=== PATIENT | male | born 1950 | race African-American/Black ===

== ENCOUNTER 2018-06-17 06:30 | Inpatient (IN) | payer MEDICARE, BC ==
[2018-06-17] VITALS (43 sets, daily range): BP systolic 87–198; BP diastolic 17–82
[~2018-06-17] VITALS: Ht 180.3 cm; Wt 104.3 kg
[~2018-06-17 06:30] MED LIST: AMLO10TA80 PO; ATOR20TA65 PO; LOSA100T14 PO
[2018-06-17] MEDS ORDERED: NORMAL SALINE 0.9% 10 ML SYR ONE (08:43)
[2018-06-17] MEDS ORDERED: THROMBIN (BOVINE) 5000 UNITS/VIAL TOP ONE (08:43)
[2018-06-17] MEDS ORDERED: LIDOCAINE HCL/EPINEPHRINE 1%-EPI 1:100,000 20 ML VIAL ONE (08:44)
[2018-06-17] MEDS ORDERED: BACITRACIN 50,000 UNITS/VIAL ONE (08:44)
[2018-06-17] MEDS ORDERED: SODIUM CHLORIDE 0.9% 1,000 ML IV SCH (09:00)
[2018-06-17] MEDS ORDERED: HYDR-4001 PO (09:10)
[2018-06-17] MEDS ORDERED: HYDR12.529 PO (09:10)
[2018-06-17] MEDS ORDERED: DOCU-138 PO (09:11)
[2018-06-17] MEDS ORDERED: ROCURONIUM BROMIDE 10MG/ML VIAL 5ML IV ONE (10:05)
[2018-06-17] MEDS ORDERED: FENTANYL CITRATE/PF 50MCG/ML 2ML VIAL ONE ×2 (10:05→12:13)
[2018-06-17] MEDS ORDERED: NEOSTIGMINE METHYLSULFATE 1MG/ML 10 ML VIAL ONE (10:05)
[2018-06-17] MEDS ORDERED: PROPOFOL 200MG/20ML VIAL IV ONE ×2 (10:06→11:56)
[2018-06-17] MEDS ORDERED: MIDAZOLAM HCL 2 MG/2 ML VIAL ONE (10:06)
[2018-06-17] MEDS ORDERED: GLYCOPYRROLATE 0.2 MG/ML 2ML VIAL ONE (10:06)
[2018-06-17] MEDS ORDERED: OPIUM/BELLADONNA ALKALOIDS 60/16.2MG SUPP PR NR (10:15)
[2018-06-17] MEDS ORDERED: OPIUM/BELLADONNA ALKALOIDS 30/16.2MG SUPP PR NR (10:15)
[2018-06-17] MEDS ORDERED: SUCCINYLCHOLINE CHLORIDE 200MG/10ML IV ONE (11:38)
[2018-06-17] MEDS ORDERED: KETOROLAC 30MG/ML VIAL ONE (11:48)
[2018-06-17] MEDS ORDERED: HYDROCODONE/APAP 7.5/325MG 1 TAB TABLET PO PRN (13:15)
[2018-06-17] MEDS ORDERED: MORPHINE SULFATE 4 MG/ML CPJ (NOT FOR IM USE) IV PRN (13:15)
[2018-06-17] MEDS ORDERED: ONDANSETRON HCL 4MG/2ML INJ IV PRN (13:15)
[2018-06-17] MEDS ORDERED: PHENYLEPHRINE HCL 10 MG/ML 1ML (IV VIAL) IV ONE (13:17)
[2018-06-17] MEDS ORDERED: HYDROMORPHONE PCA 10MG/50ML IV PRN (14:00)
[2018-06-17] MEDS ORDERED: DIPHENHYDRAMINE INJ IV PRN (14:00)
[2018-06-17] MEDS ORDERED: CEFAZOLIN SODIUM 1000MG/VIAL IV SCH (14:00)
[2018-06-17] MEDS ORDERED: NALOXONE INJ IV PRN (14:00)
[2018-06-17] MEDS ORDERED: ONDANSETRON INJ IV PRN (14:00)
[2018-06-17] MEDS: DEXT 5%/LACTATED RINGERS 1,000 ML IV SCH ×2 (14:12→21:18)
[2018-06-17] MEDS: CEFAZOLIN 1000MG PREMIX 50 ML IV SCH ×2 (14:37→21:18)
[2018-06-17] MEDS: NICARDIPINE 100 MG in SODIUM CHLORIDE 0.9% 60 ML IV PRN (16:00)
[2018-06-18] VITALS (66 sets, daily range): BP systolic 67–175; BP diastolic 36–92
[2018-06-18] MEDS: DEXT 5%/LACTATED RINGERS 1,000 ML IV SCH (03:20)
[2018-06-18 05:59] LABS: HEMATOCRIT. 29.1 % (42.0-52.0); HEMOGLOBIN. 9.7 g/dL (14.0-18.0); MEAN CORPUSCULAR VOLUME 92.4 fL (80.0-94.0); MEAN PLATELET VOLUME 7.5 fl (7.4-10.4); PLATELET 330 x1000/uL (130-400); RED BLOOD CELL COUNT 3.14 mill/uL (4.7-6.1); RED CELL DISTRIBUTION WIDTH 13.7 % (11.6-14.6)
[2018-06-18 06:00] LABS: CHLORIDE 105 mEq/L (98-107)
[2018-06-18] MEDS: CEFAZOLIN 1000MG PREMIX 50 ML IV SCH (06:11)
[2018-06-18] MEDS: NICARDIPINE 100 MG in SODIUM CHLORIDE 0.9% 60 ML IV PRN (06:14)
[2018-06-18] MEDS ORDERED: PANTOPRAZOLE SODIUM 40 MG/VIAL IV SCH (09:00)
[2018-06-18] MEDS: HYDROCHLOROTHIAZIDE 25MG TABLET PO SCH (09:54)
[2018-06-18] MEDS: AMLODIPINE 10MG TABLET PO SCH (09:54)
[2018-06-18] MEDS: DOCUSATE SODIUM 250MG CAPSULE PO SCH (09:54)
[2018-06-18 12:57] LABS: PLATELET ESTIMATE NORMAL
[2018-06-18] MEDS: HYDROCODONE/ACETAMINOPHEN 10/325MG TABLET PO PRN (13:20)
[2018-06-18] MEDS: HYDROCODONE/APAP 7.5/325MG 1 TAB TABLET PO PRN (19:16)
[2018-06-18] MEDS ORDERED: CLONIDINE 0.1MG TABLET PO PRN (21:30)
[2018-06-19] VITALS (28 sets, daily range): BP systolic 113–159; BP diastolic 54–92
[2018-06-19] MEDS: HYDROCODONE/APAP 7.5/325MG 1 TAB TABLET PO PRN ×2 (05:43→15:03)
[2018-06-19 05:56] LABS: BASOPHILS % 0.3 % (0.0-2.0); EOSINOPHILS % 0.3 % (0.0-5.0); HEMATOCRIT. 24.8 % (42.0-52.0); HEMOGLOBIN. 8.4 g/dL (14.0-18.0); MEAN CORPUSCULAR HEMOGLOBIN 31.6 pg (28.0-32.0); MEAN PLATELET VOLUME 7.5 fl (7.4-10.4); MONOCYTES % 8.8 % (2.0-8.0); NEUTROPHILS % 77.6 % (40.0-76.0); PLATELET 261 x1000/uL (130-400); RED BLOOD CELL COUNT 2.67 mill/uL (4.7-6.1); RED CELL DISTRIBUTION WIDTH 13.6 % (11.6-14.6)
[2018-06-19 06:15] LABS: CHLORIDE 103 mEq/L (98-107)
[2018-06-19] MEDS: HYDROCHLOROTHIAZIDE 25MG TABLET PO SCH (08:32)
[2018-06-19] MEDS: DOCUSATE SODIUM 250MG CAPSULE PO SCH (08:32)
[2018-06-19] MEDS: AMLODIPINE 10MG TABLET PO SCH (08:32)
[2018-06-19 09:10] LABS: BG CARBOXYHEMOGLOBIN 0.7 % (0.5-1.5); BG DEOXYHEMOGLOBIN 4.4 % (0.0-5.0); BG FRACTION INSPIRED OXYGEN 21; BG HCO3 ACT 26.4 mmol/L (22.0-26.0); BG METHEMOGLOBIN 0.1 % (0.0-1.5); BG OXYGEN SATURATION 95.6 % (92.0-98.5); BG OXYHEMOGLOBIN 94.8 % (94.0-97.0); BG PCO2 40.4 mmHg (35.0-45.0); BG PH 7.433 (7.350-7.450); BG PO2 82.3 mmHg (75.0-100.0); BG SAMPLE SITE RIGHT RADIAL; BG TOTAL HEMOGLOBIN 10.6 g/dL (12.0-18.0); BG VENT MODE ROOM AIR
[2018-06-19] MEDS ORDERED: POTASSIUM CHLORIDE 20MEQ TABLET SR PO NR (09:45)
[2018-06-19] MEDS ORDERED: DEXTROSE 50% WATER 50ML SYRINGE IV PRN (14:00)
[2018-06-19] MEDS: BLOOD SUGAR DIAGNOSTIC STRIP TEST SCH ×2 (17:39→21:00)
[2018-06-19] MEDS: INSULIN LISPRO 100 UNITS/ML SUBCUT SCH ×2 (17:59→21:19)
[2018-06-19] MEDS: HYDROCODONE/ACETAMINOPHEN 10/325MG TABLET PO PRN (21:21)
[2018-06-20] VITALS: BP 139/76
[2018-06-20 04:00] VITALS: BP 131/71
[2018-06-20] MEDS: INSULIN LISPRO 100 UNITS/ML SUBCUT SCH ×4 (07:36→21:49)
[2018-06-20] MEDS: BLOOD SUGAR DIAGNOSTIC STRIP TEST SCH ×4 (07:36→21:00)
[2018-06-20 08:00] VITALS: BP 138/69
[2018-06-20] MEDS: HYDROCHLOROTHIAZIDE 25MG TABLET PO SCH (08:20)
[2018-06-20] MEDS: AMLODIPINE 10MG TABLET PO SCH (08:20)
[2018-06-20] MEDS: DOCUSATE SODIUM 250MG CAPSULE PO SCH (08:21)
[2018-06-20] MEDS: HYDROCODONE/ACETAMINOPHEN 10/325MG TABLET PO PRN ×2 (08:21→19:40)
[2018-06-20 12:00] VITALS: BP 133/70
[2018-06-20 16:00] VITALS: BP 130/64
[2018-06-20 20:00] VITALS: BP 132/66
[2018-06-21 00:14] VITALS: BP 106/69
[2018-06-21] MEDS: HYDROCODONE/ACETAMINOPHEN 10/325MG TABLET PO PRN ×2 (02:59→11:16)
[2018-06-21 04:00] VITALS: BP 138/72
[2018-06-21 06:09] LABS: BASOPHILS % 0.7 % (0.0-2.0); EOSINOPHILS % 1.2 % (0.0-5.0); HEMATOCRIT. 26.8 % (42.0-52.0); HEMOGLOBIN. 9.1 g/dL (14.0-18.0); LYMPHOCYTES % 16.4 % (20.0-50.0); MEAN CORPUSCULAR HEMOGLOBIN 31.2 pg (28.0-32.0); MEAN CORPUSCULAR VOLUME 91.6 fL (80.0-94.0); MEAN PLATELET VOLUME 7.6 fl (7.4-10.4); MONOCYTES % 10.3 % (2.0-8.0); NEUTROPHILS % 71.4 % (40.0-76.0); PLATELET 310 x1000/uL (130-400); RED BLOOD CELL COUNT 2.92 mill/uL (4.7-6.1); RED CELL DISTRIBUTION WIDTH 13.5 % (11.6-14.6)
[2018-06-21 06:15] LABS: CHLORIDE 100 mEq/L (98-107)
[2018-06-21] MEDS: BLOOD SUGAR DIAGNOSTIC STRIP TEST SCH ×2 (07:20→12:33)
[2018-06-21] MEDS: INSULIN LISPRO 100 UNITS/ML SUBCUT SCH ×2 (07:37→12:45)
[2018-06-21 08:00] VITALS: BP_SYST 126; BP_SYST 138; BP_DIAS 47; BP_DIAS 62
[2018-06-21] MEDS: DOCUSATE SODIUM 250MG CAPSULE PO SCH (08:55)
[2018-06-21] MEDS: AMLODIPINE 10MG TABLET PO SCH (08:56)
[2018-06-21] MEDS ORDERED: HYDROCHLOROTHIAZIDE 12.5MG CAPSULE PO SCH (09:00)
[2018-06-21 12:00] VITALS: BP 115/54
[2018-06-21] MEDS ORDERED: POTASSIUM CHLORIDE 20MEQ TABLET SR PO SCH (14:45)
[2018-06-21 15:11] VITALS: BP 124/58
== END 2018-06-21 15:45 | DRG 454 ==
LOC: OR 06:30 → MICUSO 13:25 → 6EST 06-19 15:20
PROVIDERS: ADMIT Internal Medicine; ATTEND Internal Medicine
PROC: 0ST20ZZ Resection of Lumbar Vertebral Disc, Open Approach (ICD-10-PCS; principal; 2018-06-17)
PROC: 0SG00AJ Fusion of Lumbar Vertebral Joint with Interbody Fusion Device, Posterior Approach, Anterior Column, Open Approach (ICD-10-PCS; 2018-06-17)
PROC: 0SG0071 Fusion of Lumbar Vertebral Joint with Autologous Tissue Substitute, Posterior Approach, Posterior Column, Open Approach (ICD-10-PCS; 2018-06-17)
PROC: 01NB0ZZ Release Lumbar Nerve, Open Approach (ICD-10-PCS; 2018-06-17)
PROC: 0SP304Z Removal of Internal Fixation Device from Lumbosacral Joint, Open Approach (ICD-10-PCS; 2018-06-17)
DX: M48.062 Spinal stenosis, lumbar region with neurogenic claudication (principal); M47.16 Other spondylosis with myelopathy, lumbar region; M51.06 Intervertebral disc disorders with myelopathy, lumbar region; M43.16 Spondylolisthesis, lumbar region; I10 Essential (primary) hypertension; R73.9 Hyperglycemia, unspecified; G89.29 Other chronic pain; D64.9 Anemia, unspecified; D72.829 Elevated white blood cell count, unspecified; Z87.891 Personal history of nicotine dependence
CPT/HCPCS: 36415; 36600; 71045; 72100; 76000; 80048; 82375; 82805; 82962; 83036; 86850; 86900; 88300; 88304; 88311; 93970; 95863; 95925; 95926; 95928; 95929; 97116; 97162; 97166; 97530; C1713; C9113; J0330; J0690; J1815; J1885; J2250; J2270; J2370; J2704; J2710; J3010; J3490; J7050; J7121

== ENCOUNTER 2020-12-15 05:12 | Inpatient (IN) | payer MEDICARE, BC ==
[~2020-12-15] VITALS: Ht 180.3 cm; Wt 108.4 kg
[2020-12-15] VITALS (57 sets, daily range): BP systolic 34–170; BP diastolic 18–110
[~2020-12-15 05:12] MED LIST changes: +CARV40CP7 PO; +FURO-152 PO; +GABA-532 PO; +LACTATED RINGERS 1,000 ML IV NR; -LOSA100T14 PO; +PANT40TA51 PO; +POTA10CA42 PO; +VALS1TAB79 PO
[2020-12-15 06:23] LABS: CHLORIDE 100 mEq/L (98-107)
[2020-12-15] MEDS ORDERED: POLYMYXIN B SULFATE 500000 UNITS/VIAL ONE (06:32)
[2020-12-15] MEDS ORDERED: LIDOCAINE HCL/EPINEPHRINE 1%-EPI 1:100,000 20 ML VIAL ONE (06:32)
[2020-12-15] MEDS ORDERED: THROMBIN (BOVINE) 5000 UNITS/VIAL TOP ONE (06:32)
[2020-12-15] MEDS ORDERED: GENTAMICIN SULF 40MG/ML 2ML VIAL ONE (06:35)
[2020-12-15] MEDS ORDERED: POTASSIUM CHLORIDE INJ 40 MEQ in DEXT 5% WATER 250 ML IV ONE ×2 (06:45→14:30)
[2020-12-15] MEDS ORDERED: FENTANYL CITRATE/PF 50MCG/ML 2ML VIAL ONE ×2 (06:52→08:30)
[2020-12-15] MEDS ORDERED: ROCURONIUM BROMIDE 10MG/ML VIAL 5ML IV ONE ×2 (06:52→07:31)
[2020-12-15] MEDS ORDERED: NEOSTIGMINE METHYLSULFATE 1MG/ML 10 ML VIAL ONE (06:53)
[2020-12-15] MEDS ORDERED: CEFAZOLIN SODIUM 1000MG/VIAL ONE (06:53)
[2020-12-15] MEDS ORDERED: PROPOFOL 200MG/20ML VIAL IV ONE ×2 (06:53→08:30)
[2020-12-15] MEDS ORDERED: DEXAMETHASONE 4MG/ML 1ML VIAL ONE (06:53)
[2020-12-15] MEDS ORDERED: MIDAZOLAM HCL 2 MG/2 ML VIAL ONE (06:53)
[2020-12-15] MEDS ORDERED: ONDANSETRON HCL 4MG/2ML INJ ONE (06:53)
[2020-12-15] MEDS ORDERED: PHENYLEPHRINE HCL 10 MG/ML 1ML (IV VIAL) IV ONE (06:53)
[2020-12-15] MEDS ORDERED: SUCCINYLCHOLINE CHLORIDE 200MG/10ML IV ONE (06:53)
[2020-12-15] MEDS ORDERED: SODIUM CHLORIDE 0.9% 10ML VIAL ONE (06:53)
[2020-12-15] MEDS ORDERED: GLYCOPYRROLATE 0.2 MG/ML 2ML VIAL ONE (06:53)
[2020-12-15] MEDS ORDERED: METOCLOPRAMIDE HCL 10MG/2ML VIAL ONE (06:53)
[2020-12-15 09:16] LABS: CHLORIDE 104 mEq/L (98-107)
[2020-12-15] MEDS ORDERED: MORPHINE SULFATE 4 MG/ML CPJ (NOT FOR IM USE) IV PRN (09:30)
[2020-12-15] MEDS ORDERED: ONDANSETRON HCL 4MG/2ML INJ IV PRN (09:30)
[2020-12-15] MEDS ORDERED: NALOXONE HCL 0.4MG/ML VIAL IV PRN (09:45)
[2020-12-15] MEDS: DEXT 5%/LACTATED RINGERS 1,000 ML IV SCH ×2 (10:12→18:08)
[2020-12-15] MEDS ORDERED: ONDANSETRON INJ IV PRN (10:15)
[2020-12-15] MEDS ORDERED: NALOXONE INJ IV PRN (10:15)
[2020-12-15] MEDS ORDERED: DIPHENHYDRAMINE INJ IV PRN (10:15)
[2020-12-15] MEDS ORDERED: MORPHINE SULFATE 2 MG/ML CPJ (NOT FOR IM USE) IV PRN (11:30)
[2020-12-15] MEDS: HYDROMORPHONE PCA 10MG/50ML IV PRN (13:33)
[2020-12-15] MEDS ORDERED: CEFAZOLIN SODIUM 1000MG/VIAL IV SCH (14:00)
[2020-12-15] MEDS ORDERED: NICARDIPINE 100 MG in SODIUM CHLORIDE 0.9% 60 ML IV PRN (14:15)
[2020-12-15] MEDS: CEFAZOLIN 1000MG PREMIX 50 ML IV SCH ×2 (15:03→22:56)
[2020-12-15] MEDS: KCL 20MEQ/100ML PREMIX 100 ML IV SCH ×2 (16:49→18:13)
[2020-12-15] MEDS ORDERED: IPRATROPIUM/ALBUTEROL 0.5-3(2.5)MG/3ML NEB HHN PRN (17:15)
[2020-12-15] MEDS: ATORVASTATIN CALCIUM 20MG TABLET PO SCH (20:39)
[2020-12-16] VITALS (64 sets, daily range): BP systolic 87–150; BP diastolic 38–85
[2020-12-16] MEDS: DEXT 5%/LACTATED RINGERS 1,000 ML IV SCH ×3 (05:14→17:54)
[2020-12-16] MEDS: CEFAZOLIN 1000MG PREMIX 50 ML IV SCH ×2 (05:16→13:51)
[2020-12-16] MEDS: PANTOPRAZOLE 40MG DR TABLET PO SCH (05:30)
[2020-12-16 06:07] LABS: HEMATOCRIT. 33.4 % (42.0-52.0); HEMOGLOBIN. 11.4 g/dL (14.0-18.0); MEAN CORPUSCULAR HEMOGLOBIN 30.6 pg (28.0-32.0); MEAN CORPUSCULAR VOLUME 89.8 fL (80.0-94.0); MEAN PLATELET VOLUME 8.2 fl (7.4-10.4); PLATELET 302 x1000/uL (130-400); RED BLOOD CELL COUNT 3.72 mill/uL (4.7-6.1); RED CELL DISTRIBUTION WIDTH 13.4 % (11.6-14.6)
[2020-12-16 06:20] LABS: CHLORIDE 103 mEq/L (98-107)
[2020-12-16] MEDS: FUROSEMIDE 20MG TABLET PO SCH (08:30)
[2020-12-16] MEDS: AMLODIPINE 10MG TABLET PO SCH (08:30)
[2020-12-16] MEDS ORDERED: ATORVASTATIN CALCIUM 20MG TABLET PO SCH (09:00)
[2020-12-16] MEDS ORDERED: PNEUMOCOCCAL 23-VAL P-SAC VAC 0.5 ML IM ONE (09:00)
[2020-12-16] MEDS ORDERED: POTASSIUM CHLORIDE 20MEQ TABLET SR PO NR (10:00)
[2020-12-16 10:33] LABS: PLATELET ESTIMATE NORMAL
[2020-12-16] MEDS ORDERED: CLONIDINE 0.1MG TABLET PO PRN (17:30)
[2020-12-17] VITALS: BP 113/45
[2020-12-17] MEDS: ATORVASTATIN CALCIUM 20MG TABLET PO SCH ×2 (00:18→21:02)
[2020-12-17] MEDS: CEFAZOLIN 1000MG PREMIX 50 ML IV SCH ×3 (00:18→15:16)
[2020-12-17 04:00] VITALS: BP 111/41
[2020-12-17] MEDS: DEXT 5%/LACTATED RINGERS 1,000 ML IV SCH ×3 (06:33→21:02)
[2020-12-17] MEDS: PANTOPRAZOLE 40MG DR TABLET PO SCH (06:33)
[2020-12-17 08:00] VITALS: BP 143/66
[2020-12-17 08:03] LABS: BASOPHILS % 0.2 % (0.0-2.0); EOSINOPHILS % 0.5 % (0.0-5.0); HEMATOCRIT. 31.4 % (42.0-52.0); HEMOGLOBIN. 10.3 g/dL (14.0-18.0); LYMPHOCYTES % 13.2 % (20.0-50.0); MEAN CORPUSCULAR HEMOGLOBIN 29.9 pg (28.0-32.0); MEAN CORPUSCULAR VOLUME 90.8 fL (80.0-94.0); MEAN PLATELET VOLUME 8.2 fl (7.4-10.4); MONOCYTES % 8.6 % (2.0-8.0); NEUTROPHILS % 77.5 % (40.0-76.0); PLATELET 267 x1000/uL (130-400); RED BLOOD CELL COUNT 3.45 mill/uL (4.7-6.1); RED CELL DISTRIBUTION WIDTH 13.6 % (11.6-14.6)
[2020-12-17 08:07] LABS: CHLORIDE 102 mEq/L (98-107)
[2020-12-17] MEDS: AMLODIPINE 10MG TABLET PO SCH (08:49)
[2020-12-17] MEDS: FUROSEMIDE 20MG TABLET PO SCH (08:49)
[2020-12-17 12:00] VITALS: BP 132/63
[2020-12-17 16:00] VITALS: BP 153/60
[2020-12-17 20:00] VITALS: BP 136/48
[2020-12-18] VITALS (7 sets, daily range): BP systolic 138–156; BP diastolic 62–80
[2020-12-18] MEDS: PANTOPRAZOLE 40MG DR TABLET PO SCH (06:27)
[2020-12-18] MEDS: DEXT 5%/LACTATED RINGERS 1,000 ML IV SCH ×3 (06:28→17:51)
[2020-12-18 07:54] LABS: BASOPHILS % 0.3 % (0.0-2.0); EOSINOPHILS % 1.5 % (0.0-5.0); HEMATOCRIT. 29.8 % (42.0-52.0); HEMOGLOBIN. 10.1 g/dL (14.0-18.0); LYMPHOCYTES % 19.3 % (20.0-50.0); MEAN CORPUSCULAR HEMOGLOBIN 30.8 pg (28.0-32.0); MEAN CORPUSCULAR VOLUME 90.4 fL (80.0-94.0); MEAN PLATELET VOLUME 7.8 fl (7.4-10.4); MONOCYTES % 12.2 % (2.0-8.0); NEUTROPHILS % 66.7 % (40.0-76.0); PLATELET 236 x1000/uL (130-400); RED CELL DISTRIBUTION WIDTH 13.7 % (11.6-14.6)
[2020-12-18 08:03] LABS: CHLORIDE 100 mEq/L (98-107)
[2020-12-18] MEDS ORDERED: POTASSIUM CHLORIDE 20MEQ TABLET SR PO SCH (09:00)
[2020-12-18] MEDS: FUROSEMIDE 20MG TABLET PO SCH (09:17)
[2020-12-18] MEDS: AMLODIPINE 10MG TABLET PO SCH (09:17)
[2020-12-18] MEDS: HYDROMORPHONE PCA 10MG/50ML IV PRN (11:05)
[2020-12-18] MEDS ORDERED: HYDROCODONE/ACETAMINOPHEN 5/325MG TABLET PO PRN (11:30)
[2020-12-18] MEDS: ATORVASTATIN CALCIUM 20MG TABLET PO SCH (21:13)
== END 2020-12-18 22:13 | DRG 460 ==
LOC: OR 05:12 → MICUNO 05:13 → 6EST 12-16 15:50
PROVIDERS: ADMIT Neurological Surgery; ATTEND Neurological Surgery
PROC: 0SG00J1 Fusion of Lumbar Vertebral Joint with Synthetic Substitute, Posterior Approach, Posterior Column, Open Approach (ICD-10-PCS; principal; 2020-12-15)
PROC: 01NB0ZZ Release Lumbar Nerve, Open Approach (ICD-10-PCS; 2020-12-15)
PROC: 00CY0ZZ Extirpation of Matter from Lumbar Spinal Cord, Open Approach (ICD-10-PCS; 2020-12-15)
PROC: 4A11X4G Monitoring of Peripheral Nervous Electrical Activity, Intraoperative, External Approach (ICD-10-PCS; 2020-12-15)
DX: M48.061 Spinal stenosis, lumbar region without neurogenic claudication (principal); G82.20 Paraplegia, unspecified; M47.816 Spondylosis without myelopathy or radiculopathy, lumbar region; M43.16 Spondylolisthesis, lumbar region; I10 Essential (primary) hypertension; E78.5 Hyperlipidemia, unspecified; E87.6 Hypokalemia; R26.9 Unspecified abnormalities of gait and mobility; R53.81 Other malaise; G89.4 Chronic pain syndrome; M48.02 Spinal stenosis, cervical region; Z82.3 Family history of stroke; Z82.49 Family history of ischemic heart disease and other diseases of the circulatory system; Z87.891 Personal history of nicotine dependence; Z79.899 Other long term (current) drug therapy
CPT/HCPCS: 36415; 71045; 72100; 76000; 80048; 82962; 83735; 85025; 86850; 86900; 87426; 88300; 95863; 95925; 95926; 95928; 95929; 95940; 97116; 97162; 97166; C1713; C1893; J0330; J0690; J1100; J1170; J1580; J2250; J2270; J2370; J2405; J2704; J2710; J2765; J3010; J3480; J3490; J7050; J7060; J7121; C1762

== ENCOUNTER 2020-12-18 21:35 | Inpatient (IN) | payer MEDICARE, BC ==
[~2020-12-18] VITALS: Ht 180.3 cm; Wt 109.9 kg
[2020-12-18 21:30] VITALS: BP 150/77
[2020-12-18 21:35] VITALS: BP 150/77
[~2020-12-18 21:35] MED LIST changes: -LACTATED RINGERS 1,000 ML IV NR; -VALS1TAB79 PO
[2020-12-18] MEDS ORDERED: ONDANSETRON HCL 4MG TABLET PO PRN (23:00)
[2020-12-18] MEDS ORDERED: CLONIDINE 0.1MG TABLET PO PRN (23:00)
[2020-12-18] MEDS ORDERED: DIPHENHYDRAMINE 25MG CAPSULE PO PRN (23:00)
[2020-12-18] MEDS ORDERED: NALOXONE HCL 0.4 MG/ML 1ML VIAL IV PRN (23:00)
[2020-12-18] MEDS ORDERED: MORPHINE SULFATE 2 MG/ML CPJ (NOT FOR IM USE) IV PRN (23:00)
[2020-12-18] MEDS ORDERED: NALOXONE HCL 0.4MG/ML VIAL IV PRN (23:30)
[2020-12-18] MEDS: HYDROCODONE/ACETAMINOPHEN 5/325MG TABLET PO PRN (23:55)
[2020-12-19] MEDS ORDERED: IPRATROPIUM/ALBUTEROL 0.5-3(2.5)MG/3ML NEB HHN SCH
[2020-12-19] MEDS ORDERED: IPRATROPIUM/ALBUTEROL 0.5-3(2.5)MG/3ML NEB HHN PRN (02:45)
[2020-12-19] MEDS: PANTOPRAZOLE 40MG DR TABLET PO SCH (06:18)
[2020-12-19] MEDS: HYDROCODONE/ACETAMINOPHEN 5/325MG TABLET PO PRN ×4 (06:21→21:03)
[2020-12-19 08:00] VITALS: BP 139/74
[2020-12-19] MEDS: AMLODIPINE 10MG TABLET PO SCH (09:07)
[2020-12-19] MEDS: FUROSEMIDE 20MG TABLET PO SCH (09:08)
[2020-12-19 10:14] LABS: BASOPHILS % 0.8 % (0.0-2.0); EOSINOPHILS % 2.6 % (0.0-5.0); HEMOGLOBIN. 10.5 g/dL (14.0-18.0); LYMPHOCYTES % 18.2 % (20.0-50.0); MEAN CORPUSCULAR HEMOGLOBIN 30.5 pg (28.0-32.0); MEAN CORPUSCULAR VOLUME 90.2 fL (80.0-94.0); MEAN PLATELET VOLUME 7.7 fl (7.4-10.4); MONOCYTES % 9.4 % (2.0-8.0); PLATELET 299 x1000/uL (130-400); RED BLOOD CELL COUNT 3.44 mill/uL (4.7-6.1); RED CELL DISTRIBUTION WIDTH 13.6 % (11.6-14.6)
[2020-12-19 10:18] LABS: CHLORIDE 103 mEq/L (98-107)
[2020-12-19] MEDS ORDERED: POTASSIUM CHLORIDE 20MEQ TABLET SR PO NR (11:45)
[2020-12-19 17:00] VITALS: BP 154/71
[2020-12-19 20:00] VITALS: BP 147/74
[2020-12-19] MEDS: ATORVASTATIN CALCIUM 10MG TABLET PO SCH (20:07)
[2020-12-20] MEDS: HYDROCODONE/ACETAMINOPHEN 5/325MG TABLET PO PRN ×5 (01:32→19:05)
[2020-12-20] MEDS: PANTOPRAZOLE 40MG DR TABLET PO SCH (06:32)
[2020-12-20 06:43] LABS: BASOPHILS % 0.9 % (0.0-2.0); EOSINOPHILS % 4.3 % (0.0-5.0); HEMATOCRIT. 33.4 % (42.0-52.0); HEMOGLOBIN. 11.2 g/dL (14.0-18.0); LYMPHOCYTES % 21.2 % (20.0-50.0); MEAN CORPUSCULAR HEMOGLOBIN 30.4 pg (28.0-32.0); MEAN CORPUSCULAR VOLUME 90.7 fL (80.0-94.0); MEAN PLATELET VOLUME 7.6 fl (7.4-10.4); MONOCYTES % 9.7 % (2.0-8.0); NEUTROPHILS % 63.9 % (40.0-76.0); PLATELET 336 x1000/uL (130-400); RED BLOOD CELL COUNT 3.68 mill/uL (4.7-6.1); RED CELL DISTRIBUTION WIDTH 13.3 % (11.6-14.6)
[2020-12-20 06:46] LABS: CHLORIDE 100 mEq/L (98-107)
[2020-12-20 07:01] LABS: PHOSPHORUS 3.4 mg/dL (2.5-4.9); TOTAL IRON BINDING CAPACITY 211 ug/dL (250-450)
[2020-12-20 07:06] LABS: FOLIC ACID (FOLATE) SERUM 8.7 ng/mL (>5.38)
[2020-12-20 08:00] VITALS: BP 143/69
[2020-12-20] MEDS: LACTULOSE 20G/30ML UDC PO SCH ×4 (10:24→20:00)
[2020-12-20] MEDS: FUROSEMIDE 20MG TABLET PO SCH (10:25)
[2020-12-20] MEDS: AMLODIPINE 10MG TABLET PO SCH (10:26)
[2020-12-20] MEDS ORDERED: NA PHOS,M-B/NA PHOS,DI-BA ENEMA 118ML PR NR (16:45)
[2020-12-20] MEDS: CYANOCOBALAMIN 1000MCG/ML VIAL IM SCH (17:47)
[2020-12-20] MEDS: FERROUS SULFATE 325MG TABLET PO SCH (17:48)
[2020-12-20 20:00] VITALS: BP 141/64
[2020-12-20] MEDS: POLYETHYLENE GLYCOL 3350 (17GM) 1 DOSE PACK PO SCH (21:00)
[2020-12-20] MEDS: ATORVASTATIN CALCIUM 10MG TABLET PO SCH (21:30)
[2020-12-20] MEDS: GABAPENTIN 100MG CAPSULE PO SCH (21:30)
[2020-12-20] MEDS: FAMOTIDINE 20MG TABLET PO SCH (21:30)
[2020-12-20] MEDS: DEXT 5%/LACTATED RINGERS 1,000 ML IV SCH (22:39)
[2020-12-21 02:16] VITALS: BP 141/64
[2020-12-21] MEDS: HYDROCODONE/ACETAMINOPHEN 5/325MG TABLET PO PRN ×3 (04:48→22:14)
[2020-12-21] MEDS: GABAPENTIN 100MG CAPSULE PO SCH ×3 (06:17→21:10)
[2020-12-21 08:15] VITALS: BP 114/72
[2020-12-21] MEDS: CYANOCOBALAMIN 1000MCG/ML VIAL IM SCH (08:48)
[2020-12-21] MEDS: FAMOTIDINE 20MG TABLET PO SCH ×2 (08:48→20:36)
[2020-12-21] MEDS: AMLODIPINE 10MG TABLET PO SCH (08:48)
[2020-12-21] MEDS: ASCORBIC ACID 500 MG TABLET PO SCH (08:48)
[2020-12-21] MEDS: FERROUS SULFATE 325MG TABLET PO SCH ×3 (08:49→17:12)
[2020-12-21] MEDS: FUROSEMIDE 20MG TABLET PO SCH (08:49)
[2020-12-21] MEDS: DEXT 5%/LACTATED RINGERS 1,000 ML IV SCH ×2 (12:20→20:36)
[2020-12-21] MEDS ORDERED: POLYETHYLENE GLYCOL 3350 (17GM) 1 DOSE PACK PO PRN (15:30)
[2020-12-21 20:00] VITALS: BP 106/67
[2020-12-21] MEDS: ATORVASTATIN CALCIUM 10MG TABLET PO SCH (20:36)
[2020-12-22] MEDS: DEXT 5%/LACTATED RINGERS 1,000 ML IV SCH ×2 (04:00→07:00)
[2020-12-22] MEDS: HYDROCODONE/ACETAMINOPHEN 5/325MG TABLET PO PRN ×5 (05:12→20:29)
[2020-12-22] MEDS: GABAPENTIN 100MG CAPSULE PO SCH ×3 (05:12→21:43)
[2020-12-22 08:17] VITALS: BP 137/55
[2020-12-22] MEDS: FUROSEMIDE 20MG TABLET PO SCH (08:40)
[2020-12-22] MEDS: FERROUS SULFATE 325MG TABLET PO SCH ×3 (08:41→17:00)
[2020-12-22] MEDS: ASCORBIC ACID 500 MG TABLET PO SCH (08:41)
[2020-12-22] MEDS: CYANOCOBALAMIN 1000MCG/ML VIAL IM SCH (08:46)
[2020-12-22] MEDS: AMLODIPINE 10MG TABLET PO SCH (08:47)
[2020-12-22] MEDS: FAMOTIDINE 20MG TABLET PO SCH ×2 (08:48→20:27)
[2020-12-22] MEDS: HYDROCODONE/ACETAMINOPHEN 10/325MG TABLET PO PRN ×2 (11:44→17:48)
[2020-12-22] MEDS ORDERED: LACTULOSE 20G/30ML UDC PO PRN (14:00)
[2020-12-22] MEDS: DOCUSATE SODIUM 100MG CAPSULE PO SCH (16:21)
[2020-12-22 20:00] VITALS: BP 135/56
[2020-12-22] MEDS: ATORVASTATIN CALCIUM 10MG TABLET PO SCH (20:27)
[2020-12-23] MEDS: HYDROCODONE/ACETAMINOPHEN 10/325MG TABLET PO PRN ×3 (00:54→13:07)
[2020-12-23] MEDS: GABAPENTIN 100MG CAPSULE PO SCH ×3 (05:52→22:32)
[2020-12-23 08:00] VITALS: BP 143/68
[2020-12-23] MEDS: ASCORBIC ACID 500 MG TABLET PO SCH (10:37)
[2020-12-23] MEDS: CYANOCOBALAMIN 1000MCG/ML VIAL IM SCH (10:38)
[2020-12-23] MEDS: FAMOTIDINE 20MG TABLET PO SCH ×2 (10:38→22:31)
[2020-12-23] MEDS: DOCUSATE SODIUM 100MG CAPSULE PO SCH ×2 (10:39→16:42)
[2020-12-23] MEDS: FUROSEMIDE 20MG TABLET PO SCH (10:39)
[2020-12-23] MEDS: AMLODIPINE 10MG TABLET PO SCH (10:39)
[2020-12-23] MEDS: FERROUS SULFATE 325MG TABLET PO SCH ×3 (10:39→16:42)
[2020-12-23] MEDS: HYDROCODONE/ACETAMINOPHEN 5/325MG TABLET PO PRN ×2 (10:40→15:44)
[2020-12-23] MEDS ORDERED: LACTULOSE 20G/30ML UDC PO SCH (18:15)
[2020-12-23 20:00] VITALS: BP 159/73
[2020-12-23] MEDS: ATORVASTATIN CALCIUM 10MG TABLET PO SCH (22:32)
[2020-12-24] MEDS: HYDROCODONE/ACETAMINOPHEN 10/325MG TABLET PO PRN ×3 (00:28→22:03)
[2020-12-24] MEDS ORDERED: NALOXONE HCL 0.4 MG/ML 1ML VIAL IV PRN (01:15)
[2020-12-24] MEDS: GABAPENTIN 100MG CAPSULE PO SCH ×3 (06:46→21:52)
[2020-12-24] MEDS: FAMOTIDINE 20MG TABLET PO SCH ×2 (06:46→21:52)
[2020-12-24 07:55] VITALS: BP 149/71
[2020-12-24 08:51] LABS: BASOPHILS % 0.5 % (0.0-2.0); EOSINOPHILS % 2.7 % (0.0-5.0); HEMATOCRIT. 32.6 % (42.0-52.0); HEMOGLOBIN. 10.9 g/dL (14.0-18.0); LYMPHOCYTES % 16.5 % (20.0-50.0); MEAN CORPUSCULAR HEMOGLOBIN 30.1 pg (28.0-32.0); MEAN CORPUSCULAR VOLUME 89.5 fL (80.0-94.0); MEAN PLATELET VOLUME 6.9 fl (7.4-10.4); MONOCYTES % 6.3 % (2.0-8.0); PLATELET 497 x1000/uL (130-400); RED BLOOD CELL COUNT 3.64 mill/uL (4.7-6.1); RED CELL DISTRIBUTION WIDTH 13.7 % (11.6-14.6)
[2020-12-24 09:01] LABS: CHLORIDE 100 mEq/L (98-107)
[2020-12-24] MEDS: ASCORBIC ACID 500 MG TABLET PO SCH (09:05)
[2020-12-24] MEDS: AMLODIPINE 10MG TABLET PO SCH (09:06)
[2020-12-24] MEDS: DOCUSATE SODIUM 100MG CAPSULE PO SCH ×3 (09:06→16:41)
[2020-12-24] MEDS: FUROSEMIDE 20MG TABLET PO SCH (09:07)
[2020-12-24] MEDS: FERROUS SULFATE 325MG TABLET PO SCH ×3 (09:07→16:34)
[2020-12-24] MEDS: CYANOCOBALAMIN 1000MCG/ML VIAL IM SCH (09:14)
[2020-12-24] MEDS: HYDROCODONE/ACETAMINOPHEN 5/325MG TABLET PO PRN (11:39)
[2020-12-24 19:06] LABS: 25-HYDROXY VITAMIN D3 8.3 ng/mL (.)
[2020-12-24 20:00] VITALS: BP 141/54
[2020-12-24] MEDS: ATORVASTATIN CALCIUM 10MG TABLET PO SCH (21:53)
[2020-12-25] MEDS: HYDROCODONE/ACETAMINOPHEN 5/325MG TABLET PO PRN ×2 (06:45→15:02)
[2020-12-25] MEDS: GABAPENTIN 100MG CAPSULE PO SCH ×3 (06:47→22:21)
[2020-12-25 08:18] VITALS: BP 135/62
[2020-12-25] MEDS: DOCUSATE SODIUM 100MG CAPSULE PO SCH ×2 (09:15→16:37)
[2020-12-25] MEDS: FAMOTIDINE 20MG TABLET PO SCH ×2 (09:15→20:25)
[2020-12-25] MEDS: CYANOCOBALAMIN 1000MCG/ML VIAL IM SCH (09:15)
[2020-12-25] MEDS: FUROSEMIDE 20MG TABLET PO SCH (09:16)
[2020-12-25] MEDS: FERROUS SULFATE 325MG TABLET PO SCH ×3 (09:16→16:37)
[2020-12-25] MEDS: AMLODIPINE 10MG TABLET PO SCH (09:17)
[2020-12-25] MEDS: ASCORBIC ACID 500 MG TABLET PO SCH (09:17)
[2020-12-25] MEDS: HYDROCODONE/ACETAMINOPHEN 10/325MG TABLET PO PRN ×2 (09:19→20:26)
[2020-12-25] MEDS ORDERED: ERGOCALCIFEROL 50000UNITS CAPSULE PO SCH (11:15)
[2020-12-25] MEDS: CALCIUM CARBONATE/VITAMIN D3 500MG TABLET PO SCH (16:37)
[2020-12-25 20:00] VITALS: BP 136/79
[2020-12-25] MEDS: ATORVASTATIN CALCIUM 10MG TABLET PO SCH (20:25)
[2020-12-26] MEDS: HYDROCODONE/ACETAMINOPHEN 5/325MG TABLET PO PRN ×3 (01:14→21:22)
[2020-12-26] MEDS: HYDROCODONE/ACETAMINOPHEN 10/325MG TABLET PO PRN ×3 (01:52→17:24)
[2020-12-26] MEDS: GABAPENTIN 100MG CAPSULE PO SCH ×3 (06:14→21:23)
[2020-12-26 08:00] VITALS: BP 158/83
[2020-12-26] MEDS: FAMOTIDINE 20MG TABLET PO SCH ×2 (10:39→21:23)
[2020-12-26] MEDS: DOCUSATE SODIUM 100MG CAPSULE PO SCH ×2 (10:40→17:22)
[2020-12-26] MEDS: FUROSEMIDE 20MG TABLET PO SCH (10:40)
[2020-12-26] MEDS: FERROUS SULFATE 325MG TABLET PO SCH ×3 (10:40→17:22)
[2020-12-26] MEDS: CALCIUM CARBONATE/VITAMIN D3 500MG TABLET PO SCH ×2 (10:41→17:22)
[2020-12-26] MEDS: AMLODIPINE 10MG TABLET PO SCH (10:41)
[2020-12-26] MEDS: ASCORBIC ACID 500 MG TABLET PO SCH (10:42)
[2020-12-26] MEDS: CYANOCOBALAMIN 1000MCG/ML VIAL IM SCH (13:21)
[2020-12-26 20:00] VITALS: BP 97/61
[2020-12-26] MEDS: ATORVASTATIN CALCIUM 10MG TABLET PO SCH (21:22)
[2020-12-27] MEDS: HYDROCODONE/ACETAMINOPHEN 10/325MG TABLET PO PRN (02:59)
[2020-12-27] MEDS: GABAPENTIN 100MG CAPSULE PO SCH ×3 (06:30→21:56)
[2020-12-27] MEDS: HYDROCODONE/ACETAMINOPHEN 5/325MG TABLET PO PRN ×3 (06:30→23:20)
[2020-12-27 08:00] VITALS: BP 141/62
[2020-12-27] MEDS: DOCUSATE SODIUM 100MG CAPSULE PO SCH (09:00)
[2020-12-27] MEDS: FAMOTIDINE 20MG TABLET PO SCH ×2 (09:47→21:56)
[2020-12-27] MEDS: ASCORBIC ACID 500 MG TABLET PO SCH (09:47)
[2020-12-27] MEDS: FERROUS SULFATE 325MG TABLET PO SCH ×3 (09:47→17:10)
[2020-12-27] MEDS: FUROSEMIDE 20MG TABLET PO SCH (09:48)
[2020-12-27] MEDS: AMLODIPINE 10MG TABLET PO SCH (09:48)
[2020-12-27] MEDS: CALCIUM CARBONATE/VITAMIN D3 500MG TABLET PO SCH ×2 (09:48→17:09)
[2020-12-27 11:56] LABS: BASOPHILS % 1.2 % (0.0-2.0); EOSINOPHILS % 1.7 % (0.0-5.0); HEMATOCRIT. 36.3 % (42.0-52.0); HEMOGLOBIN. 11.6 g/dL (14.0-18.0); LYMPHOCYTES % 9.7 % (20.0-50.0); MEAN CORPUSCULAR HEMOGLOBIN 29.8 pg (28.0-32.0); MEAN CORPUSCULAR VOLUME 92.9 fL (80.0-94.0); MEAN PLATELET VOLUME 6.4 fl (7.4-10.4); MONOCYTES % 5.7 % (2.0-8.0); NEUTROPHILS % 81.7 % (40.0-76.0); PLATELET 601 x1000/uL (130-400); RED BLOOD CELL COUNT 3.91 mill/uL (4.7-6.1); RED CELL DISTRIBUTION WIDTH 14.2 % (11.6-14.6)
[2020-12-27 11:57] LABS: CHLORIDE 96 mEq/L (98-107)
[2020-12-27 20:00] VITALS: BP 141/67
[2020-12-27] MEDS: ATORVASTATIN CALCIUM 10MG TABLET PO SCH (21:56)
[2020-12-28] MEDS: FAMOTIDINE 20MG TABLET PO SCH ×2 (06:35→20:11)
[2020-12-28] MEDS: GABAPENTIN 100MG CAPSULE PO SCH ×3 (06:36→21:57)
[2020-12-28 06:55] LABS: HEMATOCRIT. 35.7 % (42.0-52.0); HEMOGLOBIN. 11.9 g/dL (14.0-18.0); MEAN CORPUSCULAR HEMOGLOBIN 30.1 pg (28.0-32.0); MEAN CORPUSCULAR VOLUME 90.3 fL (80.0-94.0); MEAN PLATELET VOLUME 6.5 fl (7.4-10.4); PLATELET 666 x1000/uL (130-400); RED BLOOD CELL COUNT 3.95 mill/uL (4.7-6.1)
[2020-12-28 07:20] LABS: CHLORIDE 99 mEq/L (98-107)
[2020-12-28 07:57] VITALS: BP 144/58
[2020-12-28] MEDS: FUROSEMIDE 20MG TABLET PO SCH (08:13)
[2020-12-28] MEDS: CALCIUM CARBONATE/VITAMIN D3 500MG TABLET PO SCH ×2 (08:13→18:01)
[2020-12-28] MEDS: AMLODIPINE 10MG TABLET PO SCH (08:13)
[2020-12-28] MEDS: FERROUS SULFATE 325MG TABLET PO SCH ×3 (08:13→18:01)
[2020-12-28] MEDS: HYDROCODONE/ACETAMINOPHEN 10/325MG TABLET PO PRN (08:14)
[2020-12-28] MEDS: ASCORBIC ACID 500 MG TABLET PO SCH (08:14)
[2020-12-28] MEDS: HYDROCODONE/ACETAMINOPHEN 5/325MG TABLET PO PRN ×2 (15:02→20:14)
[2020-12-28 19:59] VITALS: BP 145/69
[2020-12-28] MEDS: ATORVASTATIN CALCIUM 10MG TABLET PO SCH (20:11)
[2020-12-28 20:39] LABS: PLATELET ESTIMATE INCREASED
[2020-12-29] MEDS: HYDROCODONE/ACETAMINOPHEN 5/325MG TABLET PO PRN ×3 (01:12→20:19)
[2020-12-29] MEDS: GABAPENTIN 100MG CAPSULE PO SCH ×3 (06:05→20:18)
[2020-12-29 08:00] VITALS: BP 141/78
[2020-12-29] MEDS: HYDROCODONE/ACETAMINOPHEN 10/325MG TABLET PO PRN (08:14)
[2020-12-29] MEDS: FUROSEMIDE 20MG TABLET PO SCH (08:14)
[2020-12-29] MEDS: AMLODIPINE 10MG TABLET PO SCH (08:14)
[2020-12-29] MEDS: FAMOTIDINE 20MG TABLET PO SCH ×2 (08:14→20:18)
[2020-12-29] MEDS: ASCORBIC ACID 500 MG TABLET PO SCH (08:14)
[2020-12-29] MEDS: CALCIUM CARBONATE/VITAMIN D3 500MG TABLET PO SCH ×2 (08:14→18:02)
[2020-12-29] MEDS: FERROUS SULFATE 325MG TABLET PO SCH ×3 (08:14→18:02)
[2020-12-29 08:50] LABS: CHLORIDE 100 mEq/L (98-107)
[2020-12-29 08:54] LABS: BASOPHILS % 0.8 % (0.0-2.0); EOSINOPHILS % 2.6 % (0.0-5.0); HEMATOCRIT. 35.8 % (42.0-52.0); LYMPHOCYTES % 19.3 % (20.0-50.0); MEAN CORPUSCULAR HEMOGLOBIN 30.4 pg (28.0-32.0); MEAN CORPUSCULAR VOLUME 90.8 fL (80.0-94.0); MEAN PLATELET VOLUME 6.7 fl (7.4-10.4); MONOCYTES % 8.6 % (2.0-8.0); NEUTROPHILS % 68.7 % (40.0-76.0); PLATELET 714 x1000/uL (130-400); RED BLOOD CELL COUNT 3.94 mill/uL (4.7-6.1); RED CELL DISTRIBUTION WIDTH 14.2 % (11.6-14.6)
[2020-12-29] MEDS ORDERED: NALOXONE HCL 0.4MG/ML VIAL IV PRN (10:15)
[2020-12-29 20:00] VITALS: BP 144/59
[2020-12-29] MEDS: ATORVASTATIN CALCIUM 10MG TABLET PO SCH (20:18)
[2020-12-30] MEDS: HYDROCODONE/ACETAMINOPHEN 5/325MG TABLET PO PRN ×2 (01:01→10:18)
[2020-12-30] MEDS: GABAPENTIN 100MG CAPSULE PO SCH ×3 (05:21→21:21)
[2020-12-30] MEDS: HYDROCODONE/ACETAMINOPHEN 10/325MG TABLET PO PRN ×3 (05:22→20:29)
[2020-12-30 08:00] VITALS: BP 159/74
[2020-12-30] MEDS: ASCORBIC ACID 500 MG TABLET PO SCH (08:17)
[2020-12-30] MEDS: CALCIUM CARBONATE/VITAMIN D3 500MG TABLET PO SCH ×2 (08:18→17:03)
[2020-12-30] MEDS: FUROSEMIDE 20MG TABLET PO SCH (08:18)
[2020-12-30] MEDS: AMLODIPINE 10MG TABLET PO SCH (08:18)
[2020-12-30] MEDS: FERROUS SULFATE 325MG TABLET PO SCH ×3 (08:18→17:03)
[2020-12-30] MEDS: FAMOTIDINE 20MG TABLET PO SCH ×2 (08:18→21:19)
[2020-12-30] MEDS: LACTULOSE 20G/30ML UDC PO SCH ×2 (18:00→21:20)
[2020-12-30 20:00] VITALS: BP 159/84
[2020-12-30] MEDS: ATORVASTATIN CALCIUM 10MG TABLET PO SCH (21:19)
[2020-12-31] MEDS: GABAPENTIN 100MG CAPSULE PO SCH ×2 (05:23→13:32)
[2020-12-31 08:00] VITALS: BP 147/71
[2020-12-31] MEDS: LACTULOSE 20G/30ML UDC PO SCH (09:00)
[2020-12-31] MEDS: FUROSEMIDE 20MG TABLET PO SCH (09:12)
[2020-12-31] MEDS: FAMOTIDINE 20MG TABLET PO SCH (09:12)
[2020-12-31] MEDS: ASCORBIC ACID 500 MG TABLET PO SCH (09:12)
[2020-12-31] MEDS: AMLODIPINE 10MG TABLET PO SCH (09:12)
[2020-12-31] MEDS: FERROUS SULFATE 325MG TABLET PO SCH ×2 (09:13→13:32)
[2020-12-31] MEDS: CALCIUM CARBONATE/VITAMIN D3 500MG TABLET PO SCH (09:13)
[2020-12-31] MEDS: HYDROCODONE/ACETAMINOPHEN 10/325MG TABLET PO PRN (09:13)
[2020-12-31 12:40] VITALS: BP 119/59
[2021-01-02] MEDS ORDERED: CYANOCOBALAMIN 1000MCG/ML VIAL IM SCH (09:00)
== END 2020-12-31 15:20 | DRG 552 ==
LOC: 4WST 21:35
PROVIDERS: ADMIT Physical Medicine & Rehabilitation Spinal Cord Injury Medicine; ATTEND Internal Medicine
DX: M43.16 Spondylolisthesis, lumbar region (principal); G82.20 Paraplegia, unspecified; M48.02 Spinal stenosis, cervical region; E78.5 Hyperlipidemia, unspecified; E87.6 Hypokalemia; G89.4 Chronic pain syndrome; I10 Essential (primary) hypertension; M47.816 Spondylosis without myelopathy or radiculopathy, lumbar region; M48.061 Spinal stenosis, lumbar region without neurogenic claudication; R26.9 Unspecified abnormalities of gait and mobility; R53.81 Other malaise; K59.00 Constipation, unspecified; I25.2 Old myocardial infarction; Z82.3 Family history of stroke; Z82.49 Family history of ischemic heart disease and other diseases of the circulatory system; Z83.3 Family history of diabetes mellitus; Z87.891 Personal history of nicotine dependence; M79.662 Pain in left lower leg; M79.661 Pain in right lower leg; E55.9 Vitamin D deficiency, unspecified; E53.8 Deficiency of other specified B group vitamins
CPT/HCPCS: 36415; 80048; 80053; 82306; 82607; 82728; 82746; 83540; 83550; 83735; 84100; 84134; 84443; 85025; 87426; 92610; 93970; 97110; 97112; 97116; 97162; 97166; 97530; 97535; J2270; J3420; J7121

== ENCOUNTER 2024-12-31 22:13 | Inpatient (IN) | payer MEDICARE, BC ==
[~2024-12-31] VITALS: Ht 177.8 cm; Wt 83.9 kg
[~2024-12-31 22:13] MED LIST changes: +APIX5TAB MT; -ATOR20TA65 PO; -CARV40CP7 PO; +COR6 PO; +ERGO1250 PO; +FAMO20TA8 PO; -FURO-152 PO; +GABA-529 MT; -GABA-532 PO; +LIP40 PO; -PANT40TA51 PO; -POTA10CA42 PO
[2024-12-31 22:15] VITALS: O2SAT 97
[2024-12-31] MEDS: HYDROCODONE/ACETAMINOPHEN 7.5/325MG TABLET PO ONE (22:45)
[2024-12-31] MEDS: HYDRALAZINE 20MG/ML VIAL IV ONE (23:11)
[2024-12-31] MEDS: KETOROLAC 15MG/ML VIAL IM ONE (23:12)
[2024-12-31 23:24] LABS: BASOPHILS % 1.2 % (0.0-2.0); EOSINOPHILS % 3.5 % (0.0-5.0); HEMATOCRIT. 42.2 % (42.0-52.0); HEMOGLOBIN. 13.9 g/dL (14.0-18.0); LYMPHOCYTES % 26.7 % (20.0-50.0); MEAN PLATELET VOLUME 8.7 fl (7.4-10.4); MONOCYTES % 8.1 % (2.0-8.0); NEUTROPHILS % 60.5 % (40.0-76.0); PLATELET 222 x1000/uL (130-400); RED BLOOD CELL COUNT 4.68 mill/uL (4.7-6.1); RED CELL DISTRIBUTION WIDTH 13.9 % (11.6-14.6)
[2024-12-31 23:31] LABS: CREATININE 1.0 mg/dL (0.6-1.3); UREA NITROGEN BLOOD 7 mg/dL (9-23)
[2025-01-01 00:23] LABS: CLARITY URINE CLEAR (CLEAR); COLOR URINE YELLOW (YELLOW); GLUCOSE URINE NEGATIVE (NEGATIVE); KETONES URINE NEGATIVE (NEGATIVE); LEUKOCYTE ESTERASE URINE NEGATIVE (NEGATIVE); NITRITE URINE NEGATIVE (NEGATIVE); OCCULT BLOOD URINE NEGATIVE (NEGATIVE); PH URINE 6.0 (4.5-8.0); PROTEIN URINE NEGATIVE (NEGATIVE); SPECIFIC GRAVITY URINE 1.013 (1.005-1.030); UROBILINOGEN URINE 1.0 E.U./dL (0.2-1.0)
[2025-01-01] MEDS: LIDOCAINE 5% PATCH TOP SCH (00:28)
[2025-01-01] MEDS: AMLODIPINE 5MG TABLET PO ONE (00:29)
[2025-01-01] MEDS ORDERED: DOCUSATE SODIUM 100MG CAPSULE PO PRN (02:45)
[2025-01-01] MEDS ORDERED: ONDANSETRON HCL 4MG/2ML INJ IV PRN (02:45)
[2025-01-01] MEDS ORDERED: IPRATROPIUM/ALBUTEROL 0.5-3(2.5)MG/3ML NEB HHN PRN (02:45)
[2025-01-01] MEDS ORDERED: ACETAMINOPHEN 325MG TABLET PO PRN (02:45)
[2025-01-01] MEDS: CARVEDILOL 6.25 MG TABLET PO SCH ×2 (03:00→21:52)
[2025-01-01] MEDS ORDERED: AMLODIPINE 10MG TABLET PO SCH (03:00)
[2025-01-01] MEDS: ACETAMINOPHEN 325MG TABLET PO PRN (03:36)
[2025-01-01] MEDS: HYDRALAZINE 20MG/ML VIAL IV NR (04:12)
[2025-01-01 04:48] LABS: CLARITY URINE CLEAR (CLEAR); COLOR URINE YELLOW (YELLOW); GLUCOSE URINE NEGATIVE (NEGATIVE); KETONES URINE NEGATIVE (NEGATIVE); LEUKOCYTE ESTERASE URINE NEGATIVE (NEGATIVE); NITRITE URINE NEGATIVE (NEGATIVE); OCCULT BLOOD URINE NEGATIVE (NEGATIVE); PH URINE 7.5 (4.5-8.0); PROTEIN URINE NEGATIVE (NEGATIVE); SPECIFIC GRAVITY URINE 1.005 (1.005-1.030); UROBILINOGEN URINE 0.2 E.U./dL (0.2-1.0)
[2025-01-01 05:23] LABS: *AMPHETAMINES SCREEN URINE NEGATIVE (NEGATIVE); *BARBITURATES SCREEN URINE NEGATIVE (NEGATIVE); *BENZODIAZEPINES SCREEN URINE NEGATIVE (NEGATIVE); *COCAINE SCREEN URINE NEGATIVE (NEGATIVE); CANNABINOID URINE SCREEN NEGATIVE (NEGATIVE); ECSTASY MDMA SCREEN URINE NEGATIVE (NEGATIVE); METHADONE URINE SCREEN NEGATIVE (NEGATIVE); OPIATES URINE SCREEN NEGATIVE (NEGATIVE); PHENCYCLIDINE URINE SCREEN NEGATIVE (NEGATIVE)
[2025-01-01] MEDS: AMLODIPINE 10MG TABLET PO SCH (05:35)
[2025-01-01] MEDS: GABAPENTIN 100MG CAPSULE PO SCH (05:45)
[2025-01-01] MEDS ORDERED: DEXTROSE 50% WATER 50ML SYRINGE IV PRN (06:00)
[2025-01-01] MEDS: CARVEDILOL 6.25 MG TABLET PO NR (06:18)
[2025-01-01] MEDS: LOSARTAN 25 MG TABLET PO SCH (06:46)
[2025-01-01 07:17] LABS: PHOSPHORUS 2.3 mg/dL (2.5-4.9)
[2025-01-01] MEDS: INSULIN LISPRO 100 UNITS/ML SUBCUT SCH (08:54)
[2025-01-01] MEDS: BLOOD SUGAR DIAGNOSTIC STRIP TEST SCH (09:04)
[2025-01-01] MEDS: PANTOPRAZOLE SODIUM 40 MG/VIAL IV SCH (09:14)
[2025-01-01] MEDS: APIXABAN 5 MG TABLET PO SCH (09:15)
[2025-01-01] MEDS: CARVEDILOL 12.5MG TABLET PO SCH (09:15)
[2025-01-01 10:12] VITALS: BP 162/80; PULSE 59; RESP 20; TEMP 36.2512
[2025-01-01 10:15] VITALS: BP 162/69; PULSE 59; RESP 20; TEMP 36.2; O2SAT 98
[2025-01-01] MEDS: POTASSIUM-SODIUM PHOSPHATE POWDER PACKET PO NR (10:51)
[2025-01-01 12:00] VITALS: BP 174/79; PULSE 55; RESP 20; TEMP 36.6; O2SAT 97
[2025-01-01] MEDS: HYDRALAZINE 20MG/ML VIAL IV PRN (12:17)
[2025-01-01] MEDS: KETOROLAC 15MG/ML VIAL IV PRN (13:06)
[2025-01-01 16:00] VITALS: BP 137/65; PULSE 72; RESP 20; TEMP 36.7; O2SAT 95
[2025-01-01 20:00] VITALS: BP 160/80; PULSE 76; RESP 20; TEMP 38.6; O2SAT 96
[2025-01-01] MEDS: ATORVASTATIN CALCIUM 40MG TABLET PO SCH (21:51)
[2025-01-02] VITALS: BP 158/76; PULSE 94; RESP 20; TEMP 37.1; O2SAT 98
[2025-01-02 04:00] VITALS: BP 160/58; PULSE 64; RESP 20; TEMP 36.9; O2SAT 97
[2025-01-02 07:32] LABS: BASOPHILS % 0.9 % (0.0-2.0); CREATININE 1.0 mg/dL (0.6-1.3); EOSINOPHILS % 2.6 % (0.0-5.0); HEMATOCRIT. 42.9 % (42.0-52.0); HEMOGLOBIN. 14.4 g/dL (14.0-18.0); LYMPHOCYTES % 23.5 % (20.0-50.0); MEAN PLATELET VOLUME 8.4 fl (7.4-10.4); MONOCYTES % 8.6 % (2.0-8.0); NEUTROPHILS % 64.4 % (40.0-76.0); PLATELET 239 x1000/uL (130-400); RED BLOOD CELL COUNT 4.79 mill/uL (4.7-6.1); RED CELL DISTRIBUTION WIDTH 14.2 % (11.6-14.6); UREA NITROGEN BLOOD 10 mg/dL (9-23)
[2025-01-02 08:00] VITALS: BP 172/64; PULSE 66; RESP 20; TEMP 36.4; O2SAT 96
[2025-01-02] MEDS ORDERED: POTASSIUM CHLORIDE 20 MEQ in DEXT 5% WATER 90 ML IV ONE (08:30)
[2025-01-02] MEDS ORDERED: KCL 20MEQ/100ML PREMIX 100 ML IV NR (08:45)
[2025-01-02] MEDS ORDERED: INFLUENZA VACCINE 05/PF 0.5 ML SYRINGE IM ONE (09:00)
[2025-01-02] MEDS: LOSARTAN 50 MG TABLET PO SCH ×2 (09:44→21:07)
[2025-01-02] MEDS: HYDROCHLOROTHIAZIDE 25MG TABLET PO NR (09:44)
[2025-01-02] MEDS: MAGNESIUM 1 G PREMIX 100 ML IV NR (11:38)
[2025-01-02 12:00] VITALS: BP 140/57; PULSE 59; RESP 18; TEMP 36.6; O2SAT 98
[2025-01-02 16:00] VITALS: BP 156/62; PULSE 74; RESP 20; TEMP 36.2; O2SAT 98
[2025-01-02 20:00] VITALS: BP_SYST 127; BP_SYST 144; BP_DIAS 66; BP_DIAS 89; PULSE 62; PULSE 75; RESP 20; TEMP 36.4; TEMP 36.5; O2SAT 97
[2025-01-02 20:19] LABS: PHOSPHORUS 3.3 mg/dL (2.5-4.9)
[2025-01-02] MEDS: POTASSIUM CHLORIDE 20MEQ TABLET SR PO NR (21:06)
[2025-01-02] MEDS: CARVEDILOL 3.125 MG TABLET PO SCH (21:07)
[2025-01-03] VITALS: BP 158/81; PULSE 79; RESP 18; TEMP 37; O2SAT 97
[2025-01-03 04:00] VITALS: BP 154/75; PULSE 61; RESP 20; TEMP 36.3; O2SAT 97
[2025-01-03 08:00] VITALS: BP 132/73; PULSE 67; RESP 18; TEMP 37.2; O2SAT 95
[2025-01-03] MEDS ORDERED: LOSA50TA41 PO (09:01)
[2025-01-03] MEDS ORDERED: HYDR25TA PO (09:01)
[2025-01-03] MEDS ORDERED: COR3 PO (09:01)
[2025-01-03] MEDS: HYDROCHLOROTHIAZIDE 25MG TABLET PO SCH (09:31)
[2025-01-03 09:49] LABS: PLATELET 248 x1000/uL (130-400); RED BLOOD CELL COUNT 4.82 mill/uL (4.7-6.1); RED CELL DISTRIBUTION WIDTH 14.1 % (11.6-14.6)
[2025-01-03 09:56] LABS: CREATININE 1.1 mg/dL (0.6-1.3)
[2025-01-03 09:57] LABS: UREA NITROGEN BLOOD 12 mg/dL (9-23)
[2025-01-03 11:52] VITALS: BP 132/73; PULSE 67; RESP 18; TEMP 97.2
[2025-01-03 12:22] VITALS: BP 126/56; PULSE 71; RESP 20; TEMP 36.1; O2SAT 98
[2025-01-07] MEDS ORDERED: METF-1149 MT (12:35)
== END 2025-01-03 15:30 | disposition home or self-care (01) | DRG 305 ==
LOC: ER 22:13 → 7WST 01-01 00:29 → EDBEDREQSVC 01-01 01:09 → EDBEDREQTM 01-01 01:09 → EDBEDREQ 01-01 01:09
PROVIDERS: ADMIT Internal Medicine; ATTEND Internal Medicine
DX: I16.0 Hypertensive urgency (principal); I69.354 Hemiplegia and hemiparesis following cerebral infarction affecting left non-dominant side; Z79.01 Long term (current) use of anticoagulants; E11.9 Type 2 diabetes mellitus without complications; I10 Essential (primary) hypertension; M54.50 Low back pain, unspecified; I48.91 Unspecified atrial fibrillation; R00.1 Bradycardia, unspecified; E87.6 Hypokalemia; E78.00 Pure hypercholesterolemia, unspecified; G89.29 Other chronic pain; Z79.899 Other long term (current) drug therapy
CPT/HCPCS: 36415; 72131; 74176; 80048; 80305; 81003; 82962; 83735; 84100; 85025; 85027; 85651; 90686; 96372; 99291; J0360; J1815; J1885; J2470; J3475